=== PATIENT | male | born 1995 | race Caucasian/White ===

== ENCOUNTER 2016-04-23 20:26 | Emergency (ER) | payer OTHER, BC ==
[~2016-04-23] VITALS: Ht 172.7 cm; Wt 62.8 kg
[~2016-04-23 20:26] MED LIST: ALBUAER2 INH; SNG10 PO; SYMIN/8045 INH
[2016-04-23 20:31] VITALS: TEMP 36.9; Ht 172.7 cm; Wt 62.8 kg
[2016-04-23] MEDS ORDERED: SODIUM CHLORIDE 0.9% 1000ML 1,000 ML IV STA (20:44)
[2016-04-23] MEDS ORDERED: ALBUTEROL 0.083% NEBU SOLN 3 ML VIAL INH STA (20:44)
[2016-04-23] MEDS ORDERED: METHYLPREDNISOLONE 125 MG VIAL IV STA (20:44)
--- NOTE | 2016-04-23 21:04 | DIAGNOSTIC IMAGING REPORT ---
CHEST ONE VIEW PORTABLE CLINICAL HISTORY: Cough and fever. COMPARISON STUDY: Chest radiograph June 07, 2010 FINDINGS: Lung volumes are normal. Lungs are clear. There is no pneumothorax or pleural effusion. Cardiac size is normal. Mediastinal contours are normal. There is no evidence of pulmonary edema. IMPRESSION: No acute cardiopulmonary findings. Electronically signed by: Adiel Briceno M.D. 04/23/2016 9:02 PM Dictated Date/Time: 04/23/2016 9:01 PM
[2016-04-23 21:11] VITALS: PULSE 88; O2SAT 94
[2016-04-23 21:23] LABS: MEAN CELL VOLUME 92.4 fL (80-100); MEAN CORPUSCULAR HEMOGLOBIN 34.2 pg (25-34); RED BLOOD COUNT 4.76 M/uL (4.7-6.1); WHITE BLOOD COUNT 9.11 K/uL (4.8-10.8)
[2016-04-23 21:33] LABS: CALCIUM 8.8 mg/dl (8.5-10.1); CREATININE 0.94 mg/dl (0.60-1.40); POTASSIUM 3.3 mmol/L (3.5-5.1)
[2016-04-23] MEDS ORDERED: OSELTAMIVIR PHOSPHATE 75 MG CAP PO STA (21:39)
[2016-04-23 21:40] LABS: BASO % 0.5 %; BASO ABS # 0.05 K/uL (0-0.2); COMPLETE YES; EOS % 0.1 %; IG% 0.1 %; LYMPH % 7.7 %; MEAN PLATELET VOLUME 13.2 fL (7.4-10.4); MONO % 13.4 %; NEUT % 78.2 %; PLATELET COUNT 151 K/uL (130-400); PLT ESTIMATE DECREASED
[2016-04-23] MEDS ORDERED: OSEL75CA12 PO (22:59)
[2016-04-23] MEDS ORDERED: PRED50TA PO (22:59)
[2016-04-23 23:05] VITALS: BP 130/80; PULSE 114; O2SAT 93
--- NOTE | 2016-04-24 01:19 | EMERGENCY ROOM VISIT NOTE ---
History Report prepared by Horacio: Iva Lewis Under the Supervision of: Dr. Chris Lake D.O. First contact with patient: 20:34 Chief Complaint: RESPIRATORY PROBLEMS Stated Complaint: ASTHMA W/ COLD SX PULSE OX 91% History of Present Illness The patient is a 20 year old male who presents to the Emergency Room via mother with complaints of worsening respiratory problems with onset one day ago. He rates his discomfort as a 4/10. The patient states that he started to feel one day ago. He started to feel worse today, developing some respiratory distress. The patient has a history of asthma. He has tried using his nebulizer and inhalers. Per mother, the patient had two DuoNeb treatments today. The patient has not taken any oral steroids. Per mother, the patient had a tactile fever today. The patient has taken four Advil twice today. The patient has vomited once. He has a cough that produces mucous. The patient notes that he is smoker, smoking several packs a week. Patient has never been intubated before or any previous stays in the hospital for his asthma. Source of History: patient Onset: 1 day ago Position: chest Symptom Intensity: 4/10 Quality: other (respiratory difficulty) Timing: worsening Associated Symptoms: + cough, + fevers, + vomiting Review of Systems See HPI for pertinent positives & negatives. A total of 10 systems reviewed and were otherwise negative. Past Medical & Surgical Medical Problems: (1) Asthma (2) Pneumonia Family History Diabetes mellitus FH: heart disease Hypertension Social History Smoking Status: Former Smoker Drug Use: none Housing Status: lives with family Occupation Status: student Current/Historical Medications Scheduled Budesonide/Formoterol Fumarate (Symbicort 80/4.5 Inhaler), 2 PUFFS INH BID Montelukast (Singulair *), 10 MG PO DAILY Oseltamivir (Tamiflu), 75 MG PO BID Prednisone (Prednisone), 50 MG PO DAILY Scheduled PRN Albuterol (Ventolin), 2 PUFFS INH QID PRN for SOB/Wheezing Allergies Coded Allergies: No Known Allergies (Unverified , 04/23/16) Physical Exam Vital Signs Date Time Temp Pulse Resp B/P Pulse Ox O2 Delivery O2 Flow Rate FiO2 04/23/16 23:05 114 22 130/80 93 04/23/16 22:51 94 Room Air 04/23/16 22:20 107 18 118/64 96 Room Air 04/23/16 21:24 114 04/23/16 21:16 89 18 96 Room Air 04/23/16 21:14 89 Room Air 04/23/16 21:11 88 22 94 Room Air 04/23/16 20:31 36.9 101 20 114/64 94 Room Air Physical Exam GENERAL: Ambulates to room without difficulty, in no acute distress, in no respiratory distress, with a pulse ox reading of 94%, nontoxic EYE EXAM: normal conjunctiva OROPHARYNX: no exudate, no erythema, lips, buccal mucosa, and tongue normal and mucous membranes are moist NECK: supple, no nuchal rigidity, no adenopathy, non-tender LUNGS: Diffuse wheezing. Normal chest wall mechanics HEART: Tachycardic, no murmurs, S1 normal and S2 normal ABDOMEN: abdomen soft, non-tender, normo-active bowel sounds, no masses, no rebound or guarding. BACK: Back is symmetrical on inspection and there is no deformity, no midline tenderness, no CVA tenderness. SKIN: no rashes and no bruising UPPER EXTREMITIES: upper extremities are grossly normal. LOWER EXTREMITIES: No pitting edema. Calves are equal bilaterally. NEURO EXAM: Normal sensorium, cranial nerves II-XII grossly intact, normal speech, no gross weakness of arms, no gross weakness of legs. Medical Decision & Procedures ER Provider Diagnostic Interpretation: Xray results per the radiologist and my interpretation. CHEST ONE VIEW PORTABLE CLINICAL HISTORY: Cough and fever. COMPARISON STUDY: Chest radiograph June 07, 2010 FINDINGS: Lung volumes are normal. Lungs are clear. There is no pneumothorax or pleural effusion. Cardiac size is normal. Mediastinal contours are normal. There is no evidence of pulmonary edema. IMPRESSION: No acute cardiopulmonary findings. Electronically signed by: Adiel Briceno M.D. 04/23/2016 9:02 PM Dictated Date/Time: 04/23/2016 9:01 PM Laboratory Results 04/23/16 21:00 Red Blood Count 4.76, Mean Corpuscular Volume 92.4, Mean Corpuscular Hemoglobin 34.2, Mean Corpuscular Hemoglobin Concent 37.0, Mean Platelet Volume 13.2, Neutrophils (%) (Auto) 78.2, Lymphocytes (%) (Auto) 7.7, Monocytes (%) (Auto) 13.4, Eosinophils (%) (Auto) 0.1, Basophils (%) (Auto) 0.5, Neutrophils # (Auto ) 7.12, Lymphocytes # (Auto) 0.70, Monocytes # (Auto) 1.22, Eosinophils # (Auto ) 0.01, Basophils # (Auto) 0.05 04/23/16 21:00 Test 04/23/16 20:55 04/23/16 21:00 Influenza Type A Antigen POS for Influ A (NEG) Influenza Type B Antigen Neg for Influ B (NEG) White Blood Count 9.11 K/uL (4.8-10.8) Red Blood Count 4.76 M/uL (4.7-6.1) Hemoglobin 16.3 g/dL (14.0-18.0) Hematocrit 44.0 % (42-52) Mean Corpuscular Volume 92.4 fL (80-100) Mean Corpuscular Hemoglobin 34.2 pg (25-34) Mean Corpuscular Hemoglobin Concent 37.0 g/dl (32-36) Platelet Count 151 K/uL (130-400) Mean Platelet Volume 13.2 fL (7.4-10.4) Neutrophils (%) (Auto) 78.2 % Lymphocytes (%) (Auto) 7.7 % Monocytes (%) (Auto) 13.4 % Eosinophils (%) (Auto) 0.1 % Basophils (%) (Auto) 0.5 % Neutrophils # (Auto) 7.12 K/uL (1.4-6.5) Lymphocytes # (Auto) 0.70 K/uL (1.2-3.4) Monocytes # (Auto) 1.22 K/uL (0.11-0.59) Eosinophils # (Auto) 0.01 K/uL (0-0.5) Basophils # (Auto) 0.05 K/uL (0-0.2) RDW Standard Deviation 43.3 fL (36.4-46.3) RDW Coefficient of Variation 12.8 % (11.5-14.5) Immature Granulocyte % (Auto) 0.1 % Immature Granulocyte # (Auto) 0.01 K/uL (0.00-0.02) Platelet Estimate DECREASED Anion Gap 12.0 mmol/L (3-11) Est Creatinine Clear Calc Drug Dose 109.5 ml/min Estimated GFR () 132.9 Estimated GFR (Non- 114.6 BUN/Creatinine Ratio 15.0 (10-20) Calcium Level 8.8 mg/dl (8.5-10.1) Laboratory results per my review. Medications Administered Medications (Trade) Dose Ordered Sig/Meghana Route Start Time Stop Time Status Last Admin Dose Admin Albuterol Sulfate 7 mg 7 mg NOW STAT INH 04/23/16 20:44 04/23/16 20:46 DC 04/23/16 21:11 7 MG Sodium Chloride (Nss 1000ml) 1,000 ml @ 999 mls/hr Q1H1M STAT IV 04/23/16 20:44 04/23/16 21:44 DC 04/23/16 21:02 999 MLS/HR Methylprednisolone Sodium Succinate (Solu-Medrol IV) 125 mg NOW STAT IV 04/23/16 20:44 04/23/16 20:47 DC 04/23/16 21:02 125 MG Oseltamivir Phosphate (Tamiflu Cap) 75 mg NOW STAT PO 04/23/16 21:39 04/23/16 21:40 DC 04/23/16 22:11 75 MG ECG Indication: SOB/dyspnea Rate (beats per minute): 88 Rhythm: sinus rhythm Findings: no ectopy, other (normal axis) ED Course ED COURSE: Vital signs were reviewed and showed that the patient was tachycardic. The patients medical record was reviewed The above diagnostic studies were performed and reviewed. ED treatments and interventions as stated above. 2035: The patient was evaluated in room C3. A complete history and physical examination was performed. 2043: Solu-Medrol 125 mg IV, Sodium Chloride 1000 ml @ 999 mls/hr IV, Albuterol Sulfate 7 mg INH 2109: I reevaluated the patient. 2138: Tamiflu Cap 75 mg PO 2149: I updated the patient. He notes that he has never been intubated or admitted to the hospital for asthma. 226: Upon reevaluation, the patient is feeling better. I discussed my findings with the patient and he understands and agrees with the treatment plan. Based on the patients age, coexisting illnesses, exam and lab findings the decision to treat as an outpatient was made. The patient remained stable while under my care. The patient appeared well at the time of discharge. Medical Decision Differential diagnoses includes but is not limited to pneumonia, bronchitis, COPD/Asthma exacerbation, pneumothorax, pulmonary embolism, congestive heart failure, acute coronary syndrome The patient is a 20 year old male who presents to the ED with complaints of respiratory difficulty. Patient is a history of asthma who notes shortness of breath has been worsening over the past 2 days. He does have associated cough. No recorded fevers low he has had the chills. Patient has no other complaints at this time. He has been using his inhaler with relief. On exam he has diffuse wheezing. He is given hour long neb treatment with significant improvement. His is given steroids. Patient was able to ambulate without desaturation. Pulse ox remained in the mid 90s. Influenza A was positive. Chest x-ray showed no focal infiltrate. Patient was given Tamiflu and discharged with steroids to use his nebulizer treatments follow-up with his PCP tomorrow. Discussed with Pt concerning signs and symptoms to watch out for. Pt was instructed to follow up with their PCP and discussed with the patient their option to return to the ED at anytime for persistent or worsening symptoms. The appropriate anticipatory guidance and out-patient management, including indications for return to the emergency department, were explained at length to the patient and understood. Impression Primary Impression: Influenza A Additional Impression: Asthma exacerbation Scribe Attestation The scribe's documentation has been prepared under my direction and personally reviewed by me in its entirety. I confirm that the note above accurately reflects all work, treatment, procedures, and medical decision making performed by me. Departure Information Dispostion Home / Self-Care Prescriptions Prednisone (Prednisone) 50 Mg Tab 50 MG PO DAILY for 4 Days, TAB Prov: Chris Lake, DO 04/23/16 Oseltamivir (Tamiflu) 75 Mg Cap 75 MG PO BID, #10 CAP Prov: Chris Lake, DO 04/23/16 Referrals Hemalatha Erickson MD (PCP) Forms HOME CARE DOCUMENTATION FORM, IMPORTANT VISIT INFORMATION, WORK / SCHOOL INSTRUCTIONS Patient Instructions A Signature Page, Asthma - [facility], My [facility], Oseltamivir Phosphate Oral capsule Additional Instructions Please follow up with your primary care doctor with in the next 24 hours. Any worsening of your symptoms, please return to the ED immediately. This includes worsening shortness of breath, unable to ambulate without becoming stiff short of breath, passing out, chest pain, persistent fevers greater than 100.4, pulse ox of 89% or less, or any other concerning signs or symptoms from your standpoint. Please use your nebulizers as previously prescribed. You're given a prescription for steroids and Tamiflu. Please take these as prescribed. Problem Qualifiers
== END 2016-04-23 23:05 | disposition home or self-care (01) ==
LOC: C.EDB 20:28 → C.EDC 23:05
DX: J09.X2 Influenza due to identified novel influenza A virus with other respiratory manifestations (principal); J45.901 Unspecified asthma with (acute) exacerbation; Z87.891 Personal history of nicotine dependence; Z79.899 Other long term (current) drug therapy; Z83.3 Family history of diabetes mellitus; Z82.49 Family history of ischemic heart disease and other diseases of the circulatory system

== ENCOUNTER 2017-04-20 01:15 | Emergency (ER) | payer BC, OTHER ==
[~2017-04-20] VITALS: Ht 172.7 cm; Wt 69.1 kg
[2017-04-20 01:34] VITALS: TEMP 36.5; Ht 172.7 cm; Wt 69.1 kg
--- NOTE | 2017-04-20 01:40 | EMERGENCY ROOM VISIT NOTE ---
History Report prepared by Horacio: Aakash Turner Under the Supervision of: Dr. Damaris Walls D.O. First contact with patient: 01:26 Chief Complaint: CHEST PAIN Stated Complaint: CHEST PAIN,PALPITATIONS History of Present Illness The patient is a 21 year old male who presents to the Emergency Room after experiencing his heart beating rapidly at 0100, 24 minutes prior to arrival. The patient states that he was sitting down talking on the phone when he could feel his heart "racing really fast." He notes that the episode initially lasted for 13-15 minutes, but he continued to experience the rapid beat until he arrived to the Emergency Department. He also notes feeling light headed after standing up. The patient has had similar episodes intermittently for the past couple of years, but they usually only last 30 seconds or so. This episode was much longer. He tried to remedy the episode himself with deep breaths, without relief. A few years ago the patient was placed on a heart monitor for a month to observe his heartbeat over a period of time, but he did not follow-up with his physician to receive the results. He has not seen a currency examiner. The patient has had a head cold and took Mucinex and his home inhaler roughly 7 hours ago. The patient does drink caffeine daily, but has not had any coffee today. He denies any new dietary changes, new medications, or irregularities. 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 A total of 10 systems reviewed and were otherwise negative. Past Medical & Surgical Medical Problems: (1) Asthma (2) Pneumonia Family History Diabetes mellitus FH: heart disease Hypertension Social History Smoking Status: Former Smoker Drug Use: none Housing Status: lives with family Occupation Status: student Current/Historical Medications Scheduled PRN Albuterol Hfa (Ventolin Hfa), 2 PUFFS INH Q6H PRN for SOB/Wheezing Phenylephrine W/ Dm-GG (Mucinex Congestion & Coug 2.5-5-100 mg/5Ml), 20 ML PO BID PRN for CONGESTION Allergies Coded Allergies: No Known Allergies (Unverified , 04/23/16) Physical Exam Vital Signs Date Time Temp Pulse Resp B/P (MAP) Pulse Ox O2 Delivery O2 Flow Rate FiO2 04/20/17 03:38 97 18 122/81 97 04/20/17 02:31 88 21 124/84 98 Room Air 04/20/17 02:01 88 20 124/82 97 Room Air 04/20/17 01:54 89 18 121/81 97 Room Air 04/20/17 01:34 36.5 82 18 124/77 97 Room Air 04/20/17 01:25 88 04/20/17 01:21 169 04/20/17 01:20 98 Room Air Physical Exam GENERAL: alert, well appearing, well nourished, no distress, non-toxic EYE EXAM: normal conjunctiva, PERRL and EOM's grossly intact OROPHARYNX: no exudate, no erythema, lips, buccal mucosa, and tongue normal and mucous membranes are moist NECK: supple, no nuchal rigidity, no adenopathy, non-tender LUNGS: Clear to auscultation. Normal chest wall mechanics HEART: no murmurs, S1 normal and S2 normal, initially tachycardic, then broke to NRS in 80's during EKG and pt reported improvement of symptoms ABDOMEN: abdomen soft, non-tender, normo-active bowel sounds, no masses, no rebound or guarding. BACK: Back is symmetrical on inspection and there is no deformity, no midline tenderness, no CVA tenderness. SKIN: no rashes and no bruising. There are well healed skin graphs noted to the left shoulder and left upper chest wall. UPPER EXTREMITIES: upper extremities are grossly normal. LOWER EXTREMITIES: No pitting edema. NEURO EXAM: Normal sensorium, CN II-XII grossly intact, Nml ROM b/l UE and LE, nml sensory exam. Medical Decision & Procedures ER Provider Diagnostic Interpretation: Radiology results have been interpreted and reviewed by me. CHEST X-RAY: study of the chest was reviewed and was negative for infiltrate, focal consolidation, effusion, pneumothorax, or wide mediastinum. Laboratory Results 04/20/17 01:31 Red Blood Count 4.99, Mean Corpuscular Volume 94.4, Mean Corpuscular Hemoglobin 33.3, Mean Corpuscular Hemoglobin Concent 35.2, Mean Platelet Volume 12.6, Neutrophils (%) (Auto) 59.5, Lymphocytes (%) (Auto) 23.5, Monocytes (%) (Auto) 13.2, Eosinophils (%) (Auto) 3.1, Basophils (%) (Auto) 0.5, Neutrophils # (Auto ) 6.55, Lymphocytes # (Auto) 2.58, Monocytes # (Auto) 1.45, Eosinophils # (Auto ) 0.34, Basophils # (Auto) 0.06 04/20/17 01:31 Test 04/20/17 00:00 04/20/17 01:31 Influenza Type A Antigen Neg for Influ A (NEG) Influenza Type B Antigen Neg for Influ B (NEG) White Blood Count 11.00 K/uL (4.8-10.8) Red Blood Count 4.99 M/uL (4.7-6.1) Hemoglobin 16.6 g/dL (14.0-18.0) Hematocrit 47.1 % (42-52) Mean Corpuscular Volume 94.4 fL (80-100) Mean Corpuscular Hemoglobin 33.3 pg (25-34) Mean Corpuscular Hemoglobin Concent 35.2 g/dl (32-36) Platelet Count 158 K/uL (130-400) Mean Platelet Volume 12.6 fL (7.4-10.4) Neutrophils (%) (Auto) 59.5 % Lymphocytes (%) (Auto) 23.5 % Monocytes (%) (Auto) 13.2 % Eosinophils (%) (Auto) 3.1 % Basophils (%) (Auto) 0.5 % Neutrophils # (Auto) 6.55 K/uL (1.4-6.5) Lymphocytes # (Auto) 2.58 K/uL (1.2-3.4) Monocytes # (Auto) 1.45 K/uL (0.11-0.59) Eosinophils # (Auto) 0.34 K/uL (0-0.5) Basophils # (Auto) 0.06 K/uL (0-0.2) RDW Standard Deviation 43.8 fL (36.4-46.3) RDW Coefficient of Variation 12.6 % (11.5-14.5) Immature Granulocyte % (Auto) 0.2 % Immature Granulocyte # (Auto) 0.02 K/uL (0.00-0.02) Prothrombin Time 10.1 SECONDS (9.0-12.0) Prothromb Time International Ratio 1.0 (0.9-1.1) Anion Gap 6.0 mmol/L (3-11) Est Creatinine Clear Calc Drug Dose 123.5 ml/min Estimated GFR () 139.0 Estimated GFR (Non- 120.0 BUN/Creatinine Ratio 13.2 (10-20) Calcium Level 8.7 mg/dl (8.5-10.1) Magnesium Level 1.9 mg/dl (1.8-2.4) Total Bilirubin 0.5 mg/dl (0.2-1) Aspartate Amino Transf (AST/SGOT) 16 U/L (15-37) Alanine Aminotransferase (ALT/SGPT) 30 U/L (12-78) Alkaline Phosphatase 61 U/L (45-117) Troponin I < 0.015 ng/ml (0-0.045) Total Protein 7.6 gm/dl (6.4-8.2) Albumin 3.9 gm/dl (3.4-5.0) Globulin 3.7 gm/dl (2.5-4.0) Albumin/Globulin Ratio 1.1 (0.9-2) Thyroid Stimulating Hormone (TSH) 2.100 uIu/ml (0.300-4.500) Monoscreen NEG (NEG) Laboratory results per my review. ECG Indication: palpitations Rate (beats per minute): 98 Rhythm: normal sinus Findings: no acute ischemic change, no ectopy, other (Normal axis. Patient initially in SVT, broke himself prior to exam) ED Course 0124: The patient was evaluated in room A11. A complete history and physical exam was performed. 0213: I checked on the patient at this time. He was resting in bed. 0315: Upon reevaluation, the patient is feeling better. I discussed the findings and the treatment plan with the patient. He verbalizes agreement and understanding. The patient was discharged home. Medical Decision Differential diagnosis: Etiologies such as SVT, premature contractions, electrolyte abnormality, cardiac dysrhythmia, thyroid dysfunction, pulmonary embolism, infection, gastrointestinal, as well as others were entertained. Patient well-appearing here, discussed episode seen tonight, and likely also having episodes of SVT previously despite no formal diagnosis. Discussed with patient follow-up with cardiology as a precaution, symptoms to watch and return for, discussed vagal maneuvers and attempting them at home when he has these episodes to try and break them. Discussed hydration, avoidance of drug and alcohol or caffeine in the interim. Labs and imaging otherwise reassuring, patient monitored here with no recurrence of SVT while in the emergency room. Patient and family verbalized understanding of all results and plan and were in agreement. Patient with no risk factors for PE, ACS, no family history of dysrhythmias or congenital heart disease. Blood Pressure Screening Patient's blood pressure: Normal blood pressure Impression Primary Impression: SVT (supraventricular tachycardia) Scribe Attestation The scribe's documentation has been prepared under my direction and personally reviewed by me in its entirety. I confirm that the note above accurately reflects all work, treatment, procedures, and medical decision making performed by me. Departure Information Dispostion Home / Self-Care Referrals Hemalatha Erickson MD (PCP) Patient Instructions My [facility] Additional Instructions Please call and follow-up with cardiology. Please avoid any stimulants including caffeine and alcohol, do not use drugs, drink plenty of water. If you have any recurrence, you can try to bear down as though you're having a bowel movement or stick your face in ice water to break the fast rhythm. If this doesn't work, please return to the emergency room. If you have any other new or concerning symptoms, please return to the emergency room.
[2017-04-20 01:46] LABS: BASO % 0.5 %; BASO ABS # 0.06 K/uL (0-0.2); EOS % 3.1 %; EOS ABS # 0.34 K/uL (0-0.5); HEMATOCRIT 47.1 % (42-52); HEMOGLOBIN 16.6 g/dL (14.0-18.0); IG# 0.02 K/uL (0.00-0.02); LYMPH % 23.5 %; LYMPH ABS # 2.58 K/uL (1.2-3.4); MEAN CELL VOLUME 94.4 fL (80-100); MEAN CORPUSCULAR HEMOGLOBIN 33.3 pg (25-34); MEAN CORPUSCULAR HGB CONC 35.2 g/dl (32-36); MEAN PLATELET VOLUME 12.6 fL (7.4-10.4); MONO % 13.2 %; MONO ABS # 1.45 K/uL (0.11-0.59); NEUT % 59.5 %; NEUT ABS # 6.55 K/uL (1.4-6.5); PLATELET COUNT 158 K/uL (130-400); RED CELL DISTRIBUTION WIDTH CV 12.6 % (11.5-14.5); RED CELL DISTRIBUTION WIDTH SD 43.8 fL (36.4-46.3)
[2017-04-20 02:05] LABS: ALBUMIN 3.9 gm/dl (3.4-5.0); ALT/SGPT 30 U/L (12-78); AST/SGOT 16 U/L (15-37); BLOOD UREA NITROGEN 12 mg/dl (7-18); CALCIUM 8.7 mg/dl (8.5-10.1); CARBON DIOXIDE 28 mmol/L (21-32); GLUCOSE 121 mg/dl (70-99); POTASSIUM 3.5 mmol/L (3.5-5.1); SODIUM 139 mmol/L (136-145)
[2017-04-20 02:11] LABS: INFLUENZA B ANTIGEN Neg for Influ B (NEG)
[2017-04-20 02:16] LABS: ALKALINE PHOSPHATASE 61 U/L (45-117); TOTAL PROTEIN 7.6 gm/dl (6.4-8.2)
[2017-04-20] MEDS ORDERED: VNTHFA/IN INH (02:56)
[2017-04-20] MEDS ORDERED: PHEN-652 PO (02:58)
[2017-04-20 03:38] VITALS: BP 122/81; PULSE 97; O2SAT 97
--- NOTE | 2017-04-20 07:33 | DIAGNOSTIC IMAGING REPORT ---
CHEST ONE VIEW PORTABLE CLINICAL HISTORY: Chest pain and palpitations. COMPARISON STUDY: Chest radiograph April 23, 2016. FINDINGS: Lung volumes are normal. No pneumothorax or pleural effusion is present. There is no consolidation to suggest pneumonia. Pulmonary vascularity is normal. Cardiomediastinal silhouette is unremarkable. IMPRESSION: No acute cardiopulmonary findings. Electronically signed by: Adiel Briceno M.D. 04/20/2017 7:32 AM Dictated Date/Time: 04/20/2017 7:31 AM
== END 2017-04-20 03:38 | disposition home or self-care (01) ==
LOC: C.EDB 01:17 → C.EDA 03:38
DX: I47.1 Supraventricular tachycardia (principal); J45.909 Unspecified asthma, uncomplicated; Z87.891 Personal history of nicotine dependence; Z83.3 Family history of diabetes mellitus; Z82.49 Family history of ischemic heart disease and other diseases of the circulatory system